=== PATIENT | male | born 1950 | race Caucasian/White ===

== ENCOUNTER 2022-11-15 11:17 | Inpatient (IN) | payer OTHER ==
[~2022-11-15] VITALS: Ht 172.7 cm; Wt 113.4 kg
[2022-11-15 11:21] VITALS: BP 138/7
[2022-11-15 12:10] LABS: BASOPHILS % (AUTO) 0.1 % (0.0-2.0); EOSINOPHILS # (AUTO) 0.1 K/uL (0-0.4); EOSINOPHILS % (AUTO) 0.9 % (0.0-4.0); HEMATOCRIT 37.5 % (36-52); HEMOGLOBIN 12.1 g/dL (12.0-18.0); LYMPHOCYTES # (AUTO) 0.5 K/uL (2.0-11.5); LYMPHOCYTES % (AUTO) 6.5 % (20.5-51.1); MEAN CORPUSCULAR HEMOGLOBIN 28 pg (27-31); MEAN CORPUSCULAR HGB CONC 32 g/dL (33-37); MEAN CORPUSCULAR VOLUME 86.5 fL (80-94); MONOCYTES # (AUTO) 0.6 K/uL (0.8-1.0); MONOCYTES % (AUTO) 7.4 % (1.7-9.3); NEUTROPHILS # (AUTO) 6.7 K/uL (1.8-7.7); NEUTROPHILS % (AUTO) 85.1 % (42.2-75.2); PLATELET COUNT (AUTO) 214 K/uL (140-450); RED BLOOD CELL COUNT(AUTO) 4.33 MIL/uL (4.20-6.10); RED CELL DISTRIBUTION WIDTH 16.7 % (11.6-13.7); WHITE BLOOD COUNT (AUTO) 7.8 K/uL (4.8-10.8)
[2022-11-15 12:28] LABS: ALBUMIN 3.6 g/dL (3.4-5.0); ANION GAP 20.8 (8-16); CARBON DIOXIDE 13.1 mmol/L (21-32); POTASSIUM 5.9 mmol/L (3.5-5.1); TOTAL BILIRUBIN 0.4 mg/dL (0.0-1.0)
[2022-11-15 12:32] LABS: CREATININE 4.6 mg/dL (0.6-1.3)
[2022-11-15] MEDS ORDERED: NACL 0.9% 1,000 ML IV ONE (12:50)
[2022-11-15] MEDS ORDERED: SODIUM POLYSTYRENE 15 GM/60 ML UDBTL PO ONE (12:50)
--- NOTE | 2022-11-15 13:00 | NUR ---
pt a/o times 4, no ac distress, nsr on cm, o2 sat 98% ra, sr up times 2.
[2022-11-15] MEDS ORDERED: ONDANSETRON 4 MG/2 ML VIAL IM/IVP PRN (13:10)
[2022-11-15] MEDS ORDERED: ACETAMINOPHEN 325 MG TAB PO PRN (13:10)
[2022-11-15] MEDS ORDERED: POTASSIUM CHLORIDE 10 MEQ TABER PO PRN (13:10)
[2022-11-15] MEDS ORDERED: HYDROcodone/APAP 7.5/325 MG 1 TAB PO PRN (13:10)
[2022-11-15] MEDS ORDERED: DOCUSATE SODIUM 100 MG GELCAP PO PRN (13:10)
[2022-11-15] MEDS ORDERED: guaiFENesin DM 200/20 MG-10 ML 10 ML UDC PO PRN (13:10)
[2022-11-15] MEDS ORDERED: ZOLPIDEM 5 MG TAB PO PRN (13:10)
[2022-11-15] MEDS ORDERED: PROP20TA29 PO (13:32)
[2022-11-15] MEDS ORDERED: QUET25TA PO (13:32)
[2022-11-15] MEDS ORDERED: AMAN-72 PO (13:32)
[2022-11-15] MEDS ORDERED: ATI.5 PO (13:32)
[2022-11-15] MEDS ORDERED: ERGO-30 PO (13:32)
[2022-11-15] MEDS ORDERED: ESCI10TA PO (13:32)
[2022-11-15] MEDS ORDERED: FESO8TER PO (13:32)
[2022-11-15] MEDS ORDERED: RASA1TAB PO (13:32)
[2022-11-15] MEDS ORDERED: PRAM0.5T4 PO (13:32)
[2022-11-15] MEDS ORDERED: GLIM2TAB PO (13:32)
[2022-11-15] MEDS ORDERED: LAM25 PO (13:32)
[2022-11-15] MEDS ORDERED: LOSA25TA43 PO (13:32)
[2022-11-15] MEDS ORDERED: ALLO100T21 PO (13:32)
[2022-11-15] MEDS ORDERED: GABA100C PO (13:32)
[2022-11-15] MEDS ORDERED: SYN.05 PO (13:32)
[2022-11-15] MEDS ORDERED: MAGN200T12 PO (13:32)
[2022-11-15] MEDS ORDERED: TAMS0.4C96 PO (13:32)
[2022-11-15] MEDS ORDERED: SPIR50TA PO ×2 (13:32)
[2022-11-15] MEDS ORDERED: METF-1243 PO (13:32)
[2022-11-15] MEDS ORDERED: FURO-570 PO (13:32)
[2022-11-15] MEDS ORDERED: MEMA5TAB PO (13:32)
--- NOTE | 2022-11-15 14:00 | NUR ---
food tray given, ate 100% of food, no abd pain, nsr on cm, o2 sat 98% ra, sr up times 2.
--- NOTE | 2022-11-15 15:00 | NUR ---
bs prior transfer wnl, diaper removed, pt cleaned had small bm, nsr on cm, o2 sat 98% ra, pt transferred to 1234B, report to Yasmeen RN
[2022-11-15] MEDS ORDERED: DEXTROSE 50% 50 ML SYR IVP PRN (16:30)
[2022-11-15 16:41] VITALS: BP 111/60
[2022-11-15] MEDS ORDERED: GABAPENTIN 100 MG CAP PO SCH (17:00)
[2022-11-15] MEDS ORDERED: AMANTADINE 100 MG CAP PO SCH (17:00)
[2022-11-15] MEDS: BLOOD GLUCOSE MONITORING 1 DEV DEV FS SCH ×2 (17:39→20:42)
[2022-11-15] MEDS: NACL 0.9% 1,000 ML IV SCH (17:39)
[2022-11-15] MEDS: LORazepam 0.5 MG TAB PO SCH (17:40)
--- NOTE | 2022-11-15 19:05 | NUR ---
RECEIVED PT FROM MORNING SHIFT NURSE. PT IS AOX2-3, WITH RELATIVES BEDSIDE BEDBOUND AND ABLE TO VERBALIZE NEEDS. PT IS ON ROOM AIR AND ON CARDIAC DIET. PT HAS IV ON RIGHT HAND GAUGE 22, RUNNING WITH NS AT 60ML/HR. PT HAS LEFT LOWER LEG BLISTER. PT DENIES PAIN AT THIS TIME. NO S/S OF RESPIRATORY DISTRESS NOTED. ALL SAFETY MEASURES IMPLEMENTED. BED IN LOW POSITION, BED WHEELS ON LOCK AND CALL LIGHT WITHIN REACH.
[2022-11-15 20:00] VITALS: BP 114/68
[2022-11-15] MEDS ORDERED: SODIUM POLYSTYRENE 15 GM/60 ML UDBTL PO SCH (20:00)
[2022-11-15] MEDS: TAMSULOSIN 0.4 MG CAP PO SCH (20:33)
[2022-11-15] MEDS: PRAMIPEXOLE 0.5 MG TAB PO SCH (20:33)
[2022-11-15] MEDS: QUEtiapine FUMARATE 25 MG TAB PO SCH (20:33)
[2022-11-15] MEDS: PROPRANOLOL 20 MG TAB PO SCH (20:33)
--- NOTE | 2022-11-15 20:34 | NUR ---
ALL SCHEDULED MEDICATION WAS GIVEN TO PT PER MD ORDER. ALL SAFETY MEASURES IMPLEMENTED. BED IN LOW POSITION, BED WHEELS ON LOCK AND CALL LIGHT WITHIN REACH.
--- NOTE | 2022-11-15 20:42 | NUR ---
PT BLOOD GLUCOSE IS 109. NO INSULIN COVERAGE NEEDED.
--- NOTE | 2022-11-15 22:00 | NUR ---
PT WAS GIVEN BLANKET. PT DENIES PAIN AT THIS TIME. NO S/S OF RESPIRATORY DISTRESS NOTED. ALL SAFETY MEASURES IMPLEMENTED. BED IN LOW POSITION, BED WHEELS ON LOCK AND CALL LIGHT WITHIN REACH.
[2022-11-16] VITALS: BP 111/58
--- NOTE | 2022-11-16 | NUR ---
REMINDED THE PT THAT HE SHOULD SLEEP. PT VERBALIZE UNDERSTANDING. ALL SAFETY MEASURES IMPLEMENTED. BED IN LOW POSITION, BED WHEELS ON LOCK AND CALL LIGHT WITHIN REACH.
--- NOTE | 2022-11-16 02:00 | NUR ---
PT IS ON SLEEP. CHEST RISE AND FALL SYMMETRICALLY NOTED. RESPIRATION IS EVEN AND UNLABORED. ALL SAFETY MEASURES IMPLEMENTED. BED IN LOW POSITION, BED WHEELS ON LOCK AND CALL LIGHT WITHIN REACH.
[2022-11-16 04:02] VITALS: BP 106/67
--- NOTE | 2022-11-16 04:02 | NUR ---
MORNING CARE WAS DONE TO PT. CHANGED WARD'S, LINENS, BLANKET AND GOWN. INSERTED CONDOM CATHETER TO PT. ALL SAFETY MEASURES IMPLEMENTED. BED IN LOW POSITION, BED WHEELS ON LOCK AND CALL LIGHT WITHIN REACH.
[2022-11-16 05:34] LABS: BASOPHILS % (AUTO) 0.1 % (0.0-2.0); EOSINOPHILS % (AUTO) 0.2 % (0.0-4.0); HEMATOCRIT 30.5 % (36-52); LYMPHOCYTES # (AUTO) 0.4 K/uL (2.0-11.5); MEAN CORPUSCULAR HEMOGLOBIN 28 pg (27-31); MEAN CORPUSCULAR HGB CONC 33 g/dL (33-37); MONOCYTES # (AUTO) 0.4 K/uL (0.8-1.0); MONOCYTES % (AUTO) 8.7 % (1.7-9.3); NEUTROPHILS # (AUTO) 3.8 K/uL (1.8-7.7); PLATELET COUNT (AUTO) 206 K/uL (140-450); RED BLOOD CELL COUNT(AUTO) 3.59 MIL/uL (4.20-6.10); RED CELL DISTRIBUTION WIDTH 16.3 % (11.6-13.7); WHITE BLOOD COUNT (AUTO) 4.6 K/uL (4.8-10.8)
[2022-11-16] MEDS: LEVOTHYROXINE 0.05 MG TAB PO SCH (05:45)
[2022-11-16 05:51] LABS: ANION GAP 21.5 (8-16); CARBON DIOXIDE 11.1 mmol/L (21-32); CREATININE 3.6 mg/dL (0.6-1.3); POTASSIUM 5.6 mmol/L (3.5-5.1)
[2022-11-16] MEDS: NACL 0.9% 1,000 ML IV SCH (05:51)
--- NOTE | 2022-11-16 05:53 | NUR ---
RECEIVED CALL FROM LAB ([facility]) REGARDING CRITICAL VALUE OF CREATININE-95
[2022-11-16 06:13] LABS: LYMPHOCYTES % (AUTO) 8.6 % (20.5-51.1); NEUTROPHILS % (AUTO) 82.4 % (42.2-75.2)
--- NOTE | 2022-11-16 06:40 | NUR ---
IV IS INFILTRATED. INSERTED NEW IV ON RIGHT FOREARM GAUGE 20. IV IS NOW PATENT AND INTACT. ALL SAFETY MEASURES IMPLEMENTED. BED IN LOW POSITION, BED WHEELS ON LOCK AND CALL LIGHT WITHIN REACH.
[2022-11-16] MEDS: BLOOD GLUCOSE MONITORING 1 DEV DEV FS SCH ×4 (06:43→20:19)
--- NOTE | 2022-11-16 06:43 | NUR ---
PT BLOOD GLUCOSE IS 138. NO INSULIN COVERAGE NEEDED.
--- NOTE | 2022-11-16 07:27 | NUR ---
PT IS STABLE. ENDORSED PT TO MORNING SHIFT NURSE FOR CONTINUITY OF CARE.
--- NOTE | 2022-11-16 07:28 | NUR ---
RECEIVED ENDORSEMENT FROM SEWER SYSTEM SUPERVISOR NURSE FOR CONTINUITY OF CARE. PT IS ASLEEP AND NO SIGN OF DISTRESS. CALL JACOBSEN WITHIN REACH. WILL CONTINUE TO MONITOR.
[2022-11-16 08:00] VITALS: BP 111/52
[2022-11-16] MEDS ORDERED: LOSARTAN 25 MG TAB PO SCH (09:00)
[2022-11-16] MEDS: QUEtiapine FUMARATE 25 MG TAB PO SCH ×2 (09:17→20:23)
[2022-11-16] MEDS: PRAMIPEXOLE 0.5 MG TAB PO SCH ×2 (09:17→20:20)
[2022-11-16] MEDS: PROPRANOLOL 20 MG TAB PO SCH ×2 (09:18→20:22)
[2022-11-16] MEDS: lamoTRIgine 25 MG TAB PO SCH (09:18)
[2022-11-16] MEDS: GABAPENTIN 300 MG CAP PO SCH (09:19)
[2022-11-16] MEDS: MEMANTINE 10 MG TAB PO SCH (09:19)
[2022-11-16] MEDS: PANTOPRAZOLE 40 MG TABEC PO SCH (09:19)
[2022-11-16] MEDS: allopurinoL 100 MG TAB PO SCH (09:20)
[2022-11-16] MEDS: LORazepam 0.5 MG TAB PO SCH ×3 (09:20→17:20)
[2022-11-16] MEDS: ESCITALOPRAM 20 MG TAB PO SCH (09:21)
[2022-11-16] MEDS ORDERED: RENAL DOSING PER PHARMACY MC PRN (11:25)
[2022-11-16 12:00] VITALS: BP 130/69
[2022-11-16] MEDS: AMANTADINE 100 MG CAP PO SCH (12:04)
--- NOTE | 2022-11-16 13:27 | NUR ---
DRESSING CHANGED ON THE LEFT LOWER LEG, THE SKIN RED LOOKS, THE WHOLE LEG LAS NON PETTING EDEMA IN BILATERAL LEGS.[id number]
[2022-11-16] MEDS ORDERED: SODIUM POLYSTYRENE 15 GM/60 ML UDBTL PO ONE (15:15)
[2022-11-16 16:00] VITALS: BP 119/59
[2022-11-16] MEDS: SODIUM BICARBONATE 8.4% 100 MEQ in NACL 0.45% 1,000 ML IV SCH (16:02)
[2022-11-16] MEDS: INSULIN LISPRO SLIDING SCALE 100 UNITS/ML VIAL SUBQ PRN ×2 (17:06→20:58)
--- NOTE | 2022-11-16 17:54 | NUR ---
URINE SAMPLE IS SENT TO THE LAB.[id number]
[2022-11-16 18:53] LABS: BILIRUBIN,URINE NEGATIVE (NEGATIVE); BLOOD, URINE 2+ (NEGATIVE); LEUKOCYTE ESTERASE ,URINE NEGATIVE (NEGATIVE); NITRITE, URINE NEGATIVE (NEGATIVE); UGLUCOSE NEGATIVE (NEGATIVE)
[2022-11-16 19:10] LABS: APPEARANCE,URINE CLEAR (CLEAR); COLOR,URINE YELLOW (YELLOW)
[2022-11-16 19:12] LABS: RBC,URINE 0-5 /HPF (0-5)
--- NOTE | 2022-11-16 19:40 | NUR ---
RECEIVED PT SLEEPING ON BED , DINNER TRAY REMAINS UNTOUCHED AT BEDSIDE . WILL FEED THE PT . ON TELE MONITOR . NO S/SX OF ACUTE DISTRESS NOTED AT THIS TIME . BED ALARM ON .
[2022-11-16 20:00] VITALS: BP 133/79
[2022-11-16] MEDS: TAMSULOSIN 0.4 MG CAP PO SCH (20:20)
--- NOTE | 2022-11-16 20:20 | NUR ---
WHILE GIVING MEDICATION AND TAKING HIS VITAL SIGNS , PT REQUESTING TO CALL HER DAUGHTER JOANIE . PER PT HE WANTS TO TALK HER DAUGHTER BUT HE NOT ELABORATES ABOUT HIS CONCERN .
--- NOTE | 2022-11-16 20:40 | NUR ---
DIALED THE NUMBER OF PT'S DAUGHTER , WHEN THE PT'S TALKING HIS DAUGHTER THRU BEDSIDE TEL . PER HER DAUGHTER IT BEEN A LONG TIME HER FATHER IS ALREADY HERE IN THE HOSPITAL BUT NO ONE CALL HER TO GIVE AN UPDATE ABOUT HER DAD . I INFORMING THE DAUGHTER THE DOCTOR WILL DO ROUNDS JONAH MORNING AND I WILL ENDORSE TO AM NURSE TO INFORM THE DOCTOR TO GIVE A CALL TO HER SO THAT THE DOCTOR WILL DISCUSS W/ HER ABOUT PT'S TREATMENT AND PLAN OF CARE . PT. JUST WOKE UP . WILL FEED THE PT . AND WILL CLEAN UP THE PT . CALL LIGHT WITHIN REACH . BED ALARM ON .
--- NOTE | 2022-11-16 22:20 | NUR ---
FEEDING THE PT . NO S/SX OF ASPIRATION NOTED . Addendum: 11/16/22 at 9306 by Priscila Mabry RN THE ABOVE IRINEO'S NOTE IS TIME ERROR ENTRY INSTEAD OF 0 - NOEL
--- NOTE | 2022-11-16 22:40 | NUR ---
CLEAN THE PT , MY CO WORKER ALLYSSA GALLO HELPS ME CLEAN THE PT . PT HAS WATERY BM IN MODERATE AMOUNT , BP WNL . WILL CONT. TO MONITOR . CALL LIGHT WITHIN REACH Addendum: 11/16/22 at 2336 by Priscila Mabry RN THE ABOVE NURSE'S NOTE IS AN ERROR ENTRY , INSTEAD OF Robin - NOEL
--- NOTE | 2022-11-16 23:00 | NUR ---
PT HAS WET DIAPER - WILL CLEAN UP , CALL LIGHT WITHIN REACH . Addendum: 11/16/22 at 4964 by Priscila Mabry RN THE ABOVE NURSE'S NOTE IS TIME ERROR ENTRY , INSTEAD OF 2200 - NOEL
[2022-11-17] VITALS: BP 130/72
[2022-11-17 04:00] VITALS: BP 140/82
--- NOTE | 2022-11-17 04:00 | NUR ---
rounds , pt has wet diaper only pee no bm - will clean up . no s/sx of acute distress noted .
--- NOTE | 2022-11-17 04:12 | NUR ---
c/o pain , w/ on and off hand tremors - bp 140/ 78 , hr 77 , rr 18 , o2 sat 99 5 - will medicate .
[2022-11-17] MEDS: SODIUM BICARBONATE 8.4% 100 MEQ in NACL 0.45% 1,000 ML IV SCH ×3 (04:22→18:03)
--- NOTE | 2022-11-17 05:15 | NUR ---
when i return to pt's room to give norco . pt is sleeping soundly and comfortably on bed , i call his name 2x to wake him up , but pt sleeping soundly , no signs of pain in his facial appearance , no hand tremors noted at this time on tele monitor , hr 74 , rr 18 , chest rise and fall equally , will cont. to nate , will reteurn the norco to kayy , will re assess the pain , call light within reach .
[2022-11-17 05:27] LABS: BASOPHILS % (AUTO) 0.4 % (0.0-2.0); EOSINOPHILS # (AUTO) 0.1 K/uL (0-0.4); EOSINOPHILS % (AUTO) 2.1 % (0.0-4.0); HEMATOCRIT 32.9 % (36-52); HEMOGLOBIN 10.7 g/dL (12.0-18.0); LYMPHOCYTES # (AUTO) 0.9 K/uL (2.0-11.5); LYMPHOCYTES % (AUTO) 15.8 % (20.5-51.1); MEAN CORPUSCULAR HEMOGLOBIN 27 pg (27-31); MEAN CORPUSCULAR HGB CONC 33 g/dL (33-37); MEAN CORPUSCULAR VOLUME 83.7 fL (80-94); MONOCYTES # (AUTO) 0.7 K/uL (0.8-1.0); MONOCYTES % (AUTO) 13.4 % (1.7-9.3); NEUTROPHILS # (AUTO) 3.8 K/uL (1.8-7.7); NEUTROPHILS % (AUTO) 68.3 % (42.2-75.2); PLATELET COUNT (AUTO) 237 K/uL (140-450); RED BLOOD CELL COUNT(AUTO) 3.93 MIL/uL (4.20-6.10); RED CELL DISTRIBUTION WIDTH 16.6 % (11.6-13.7); WHITE BLOOD COUNT (AUTO) 5.6 K/uL (4.8-10.8)
[2022-11-17 05:42] LABS: ANION GAP 16.6 (8-16); CREATININE 2.5 mg/dL (0.6-1.3); POTASSIUM 3.6 mmol/L (3.5-5.1)
--- NOTE | 2022-11-17 05:43 | NUR ---
re visiting the pt . pt is sleeping , call light within reach . will cont. to monitor
--- NOTE | 2022-11-17 05:52 | NUR ---
per lab bun 6.8 . The result is trending down . charge nurse inform .
[2022-11-17] MEDS: BLOOD GLUCOSE MONITORING 1 DEV DEV FS SCH ×4 (06:50→21:10)
[2022-11-17] MEDS: INSULIN LISPRO SLIDING SCALE 100 UNITS/ML VIAL SUBQ PRN ×4 (06:50→21:23)
[2022-11-17] MEDS: LEVOTHYROXINE 0.05 MG TAB PO SCH (06:57)
--- NOTE | 2022-11-17 07:30 | NUR ---
RECEIVED REPORT FROM NUCLEAR POWERPLANT MECHANIC HELPER NURSE FOR CONTINUITY OF CARE. PT IS AWAKE AND STABLE. NO SIGNS OF DISTRESS. WILL REVIEW POC AND CONTINUE TO MONITOR. Addendum: 11/17/22 at 0803 by ESTEVAN JONES RN AT 0735 RECEIVED REPORT FROM NUCLEAR POWERPLANT MECHANIC HELPER NURSE FOR CONTINUITY OF CARE. PT IS AWAKE AND STABLE. NO SIGNS OF DISTRESS. WILL REVIEW POC AND CONTINUE TO MONITOR.
--- NOTE | 2022-11-17 07:35 | NUR ---
endorsed to kassie dave requested oat meat for breakfast , black coffee and splenda sugar - wyatt dave verbalizes underatanding , i left msg / request to dietary via phone machine . pt is 1: 1 feeder due to0 hand tremors , endorsed . Addendum: 11/17/22 at 0747 by Priscila Mabry RN endorsed to wyatt dave - pt.'s daughter ( erin Tompkins wants to talk the doctor about plan of care - the contact number is in the file - wyatt dave verbalizes understanding .
[2022-11-17 08:00] VITALS: BP 150/60
--- NOTE | 2022-11-17 08:44 | NUR ---
PATIENT HAS BEEN SCREENED AND CATEGORIZED HIGH NUTRITION RISK. PATIENT WILL BE SEEN WITHIN 1-2 DAYS OF ADMISSION. FNS CONSULT RECEIVED FOR WOUNDS/PRESSURE ULCERS 11/17/22 11/15/22-11/17/[address]
[2022-11-17] MEDS: MEMANTINE 10 MG TAB PO SCH (08:53)
[2022-11-17] MEDS: ESCITALOPRAM 20 MG TAB PO SCH (08:53)
[2022-11-17] MEDS: allopurinoL 100 MG TAB PO SCH (08:54)
[2022-11-17] MEDS: lamoTRIgine 25 MG TAB PO SCH (09:03)
[2022-11-17] MEDS: LORazepam 0.5 MG TAB PO SCH ×3 (09:04→16:50)
[2022-11-17] MEDS: QUEtiapine FUMARATE 25 MG TAB PO SCH ×2 (09:04→21:12)
[2022-11-17] MEDS: GABAPENTIN 300 MG CAP PO SCH (09:06)
[2022-11-17] MEDS: PROPRANOLOL 20 MG TAB PO SCH ×2 (09:07→21:13)
[2022-11-17] MEDS: PANTOPRAZOLE 40 MG TABEC PO SCH (09:08)
[2022-11-17] MEDS: PRAMIPEXOLE 0.5 MG TAB PO SCH ×2 (09:08→21:13)
[2022-11-17] MEDS: AMANTADINE 100 MG CAP PO SCH (09:09)
--- NOTE | 2022-11-17 11:17 | NUR ---
SKIN ASSESSMENT DONE ON THIS 72-YEAR-OLD MALE FROM SNF WITH AMS. PAST MEDICAL HISTORY OF DIABETES, HYPERTENSION, BPH, HYPOTHYROIDISM, PARKINSONISM, DEMENTIA, GOUT AND PT. ADMITTED WITH MASD AND LLE WOUND. POC DISCUSSED WITH PT., PT. VERBALIZES UNDERSTANDING. PT. WITH LOW SOFY SCALE AT MODERATE TO HIGH RISK, CONTINUE TO FOLLOW PRESSURE INJURY PREVENTION INTERVENTIONS. POC DISCUSSED WITH PRIMARY RN PATRICIA. -MASD TO GROINS, SCROTAL AND BUTTOCKS AREA, SKIN RED, MOIST -STASIS ULCER TO LLE MULTIPLE PARTIAL THICKNESS SKIN LOSS WITH LARGEST TO LATERAL LE 12X5X0.1CM, WOUND BED 100% PINK, MOIST, NO ODOR,ALIX WOUND SKIN PALE, MOIST, PAIN 0/10. RECOMMENDATIONS -CLEANSE MASD TO GROINS, SCROTAL AND BUTTOCKS AREA WITH MILD SOAP AND WATER, PAT DRY, APPLY Z GUARD BID AND PRN IF SOILING. -CLEANSE LLE WOUND WITH CLEANSING SOLUTION, PAT DRY, APPLY OIL EMULSION DRESSING, COVER WITH ABD PAD, WRAP WITH KERLIX ROLL AND SECURED WITH TAPE. DAILY AND PRN IF SOILING -POSITIONING: TURN AND REPOSITION PATIENT Q 2H OR SOONER USE PILLOWS TO KEEP BONY PROMINENCES FROM DIRECT CONTACT WITH SURFACES USE REPOSITIONING WEDGES TO PROVIDE 30-DEGREE ANGLE FOR SIDE LYING POSITIONS OFFLOADING OR FOAM DRESSING TO ALL TUBING TO PREVENT MEDICAL DEVICES RELATED PRESSURE INJURY -RE-EVALUATING AND MANAGING INCONTINENCE MONITOR SKIN CONDITION DURING POSITION CHANGE DO NOT MASSAGE REDNESS, BONY PROMINENCES FREQUENT ALIX-CARE AND PROVIDE BARRIER CREAMS PRN IF SOILING MOISTURE CONTROL BY OFFER BED GANNON/URINAL /ABSORBENT PAD TO WICK AND HOLD MOISTURE KEEP SKIN DRY AND PROTECT FROM FRICTION -MANAGE FRICTION/SHEAR/MOBILITY KEEP HOB AT THE LOWEST LEVEL OF ELEVATION NO MORE THAN 30 DEGREE UNLESS OTHERWISE CONTRAINDICATED USE LIFT SHEET OR TRANSFER DEVICE TO MOVE PATIENT AND PREVENT LATERAL SHEER. PROTECT HEELS, ELBOWS BONY PROMINENCES WITH SKIN BERRIES OR FOAM DRESSING IF EXPOSED TO FRICTION OFFLOAD BILATERAL HEELS BY PLACING PILLOWS UNDER CALVES AT ALL TIMES, UNLESS OTHERWISE CONTRAINDICATED -PRESSURE REDISTRIBUTION SURFACE THERAPY SAAD ISOFLEX MATTRESS -NUTRITION: PLEASE FOLLOW RD RECOMMENDATIONS AND OFFER NUTRITION SUPPLEMENTS IF ORDERED. PLEASE CONTACT WOUND CARE NURSE FOR ANY QUESTION AND CHANGE OF WOUND CONDITION.
--- NOTE | 2022-11-17 11:22 | NUR ---
spoke with Leticia the director at [facility] and she said that they do not give out the original of the POLST.[email or web address]
[2022-11-17] MEDS ORDERED: Z-GUARD PASTE TP PRN (11:40)
[2022-11-17 11:52] LABS: CHLORIDE,URINE RANDOM 67 mmol/L (110-250); CREATININE,URINE RANDOM 51 mg/dL (30-125)
[2022-11-17 12:00] VITALS: BP 126/66
[2022-11-17] MEDS ORDERED: NON ADHERENT DRESSING TP SCH (13:00)
[2022-11-17] MEDS: Z-GUARD PASTE TP SCH (13:00)
--- NOTE | 2022-11-17 14:22 | NUR ---
11/17/22 RD INITIAL ASSESSMENT COMPLETED PLEASE REFER TO NUTRITION ASSESSMENT UNDER CARE ACTIVITY FOR ESTIMATED NUTRITIONAL NEEDS. 1. CONTINUE ON CURRENT CCHO AND CARDIAC DIET TOLERATED 2. RD RECOMMENDS PROSOURCE BID WHICH WILL PROVIDE 30GMS OF EXTRA PROTEIN MEETING ESTIMATED NUTRITION NEEDS FOR WOUNDS. 3. RD TO FOLLOW-UP 3-5 DAYS, MODERATE RISK REENA BRADY RD
--- NOTE | 2022-11-17 15:37 | NUR ---
DC [age]ANN[age] YRS OLD MALE PATIENT WAS ADMITTED FROM [facility] WITH A DX OF ALOC. PATIENT HAS A HX OF HTN, BPH , PARKINSON DEMENTIA AND GOUT. CXR AND RENAL US NEGATIVE. RAPID COVID TEST NEGATIVE. ADMINISTERED IVF, AND CONTINUED HOME MEDS. CONSULTED WITH NEPHRO AND WOUND CARE NURSE. DC PLAN TO RETURN TO [facility] WHEN STABLE CM TO FOLLOW Addendum: 11/18/22 at 0904 by FREDDY MUELLER CM RECIEVED ORDER TO [facility] HOME HEALTH PT/OT. FAXED ALL PAPERWORK TO [facility]. Addendum: 11/18/22 at 1322 by FREDDY MUELLER TRANSPORTATION SETUP WITH [facility] FOR A [id number] [employer] MESSAGE BROKER DEVELOPER TIME NURSE VESTA AND DAUGHTER JOANIE AWARE OF THE ABOVE INFORMATION.
--- NOTE | 2022-11-17 15:58 | NUR ---
WOUND NURSE CHANGED THE DRESSING OF THE PT'S LEFT LEG. FLAQUITO
[2022-11-17 16:00] VITALS: BP 156/68
--- NOTE | 2022-11-17 19:29 | NUR ---
ENDORSED PT TO THE RISK REDUCTION COUNSELOR NURSE FOR CONTINUITY OF CARE.
--- NOTE | 2022-11-17 19:30 | NUR ---
RECEIVED REPORT FROM DAY SHIFT NURSE FOR CONTINUITY OF CARE. PT IS AWAKE AT THIS TIME, STATES NO PAIN PRESENT. CURRENTLY ON ROOM AIR WITH NO SIGNS OF DISTRESS NOTED. IV SITE LOCATED AT RIGHT FOREARM 20 GAUGE, INTACT AND PATENT. WILL MONITOR FREQUENTLY THROUGHOUT SHIFT.
[2022-11-17 20:00] VITALS: BP 144/41
--- NOTE | 2022-11-17 20:00 | NUR ---
Patient's Plan of Care was discussed and reviewed with OVEN DRIER TENDER: WILBERT PERALES
--- NOTE | 2022-11-17 21:03 | NUR ---
SCHEDULED MEDICATIONS ADMINISTERED. PT TOLERATED WELL. WILL CONTINUE TO MONITOR THE PT.
[2022-11-17] MEDS: TAMSULOSIN 0.4 MG CAP PO SCH (21:38)
[2022-11-18] VITALS: BP 103/61
--- NOTE | 2022-11-18 | NUR ---
PT STILL AWAKE AT THIS TIME. PATIENT REQUESTED ORAL CARE. TOOK VITAL SIGNS, PT HEART RATE RUNNING SINUS CELINE, OTHERWISE VITAL SIGNS WNL. PERFORMED ORAL CARE AND ENCOURAGED PT TO TRY AND SLEEP. WILL CONTINUE FREQUENT MONITORING.
[2022-11-18] MEDS: Z-GUARD PASTE TP SCH (01:10)
--- NOTE | 2022-11-18 01:10 | NUR ---
CLEANED, APPLIED Z-GAURD PRESCRIBED TO PT. PT TOLERATED WELL. PT NOW ASLEEP, WILL CONTINUE MONITORING.
[2022-11-18 04:00] VITALS: BP 155/63
[2022-11-18 05:12] LABS: BASOPHILS # (AUTO) 0.1 K/uL (0.00-0.22); BASOPHILS % (AUTO) 0.6 % (0.0-2.0); EOSINOPHILS # (AUTO) 0.6 K/uL (0-0.4); EOSINOPHILS % (AUTO) 5.8 % (0.0-4.0); HEMATOCRIT 30.6 % (36-52); HEMOGLOBIN 10.3 g/dL (12.0-18.0); LYMPHOCYTES # (AUTO) 2.2 K/uL (2.0-11.5); LYMPHOCYTES % (AUTO) 22.8 % (20.5-51.1); MEAN CORPUSCULAR HEMOGLOBIN 28 pg (27-31); MEAN CORPUSCULAR HGB CONC 34 g/dL (33-37); MEAN CORPUSCULAR VOLUME 83.3 fL (80-94); MONOCYTES # (AUTO) 1.3 K/uL (0.8-1.0); MONOCYTES % (AUTO) 12.7 % (1.7-9.3); NEUTROPHILS # (AUTO) 5.7 K/uL (1.8-7.7); NEUTROPHILS % (AUTO) 58.1 % (42.2-75.2); PLATELET COUNT (AUTO) 220 K/uL (140-450); RED BLOOD CELL COUNT(AUTO) 3.67 MIL/uL (4.20-6.10); RED CELL DISTRIBUTION WIDTH 16.9 % (11.6-13.7); WHITE BLOOD COUNT (AUTO) 9.9 K/uL (4.8-10.8)
[2022-11-18 05:39] LABS: CARBON DIOXIDE 23.1 mmol/L (21-32); CREATININE 1.9 mg/dL (0.6-1.3); POTASSIUM 3.1 mmol/L (3.5-5.1)
[2022-11-18] MEDS: BLOOD GLUCOSE MONITORING 1 DEV DEV FS SCH ×2 (06:30→11:22)
[2022-11-18] MEDS: LEVOTHYROXINE 0.05 MG TAB PO SCH (06:30)
--- NOTE | 2022-11-18 07:20 | NUR ---
ASSUMED CONTINUITY OF CARE. INITIAL ASSESSMENT DONE. RE-ORIENTED TO EVENTS AND SURROUNDINGS. KEEP COMFORTABLE ON BED. FALL PRECAUTION APPLIED. CALL LIGHT WITHIN REACH.
--- NOTE | 2022-11-18 07:27 | NUR ---
PT SLEPT WELL THROUGHOUT SHIFT. PT VOIDED TWICE AND HAD NO BM DURING CUT OFF SAW GRADER. LAST BLOOD SUGAR = 145, NO COVERAGE NEEDED. ENDORSED TO DAY SHIFT NURSE FOR CONTINUITY OF CARE.
[2022-11-18 08:00] VITALS: BP_SYST 108; BP_SYST 116; BP_DIAS 62; BP_DIAS 63
--- NOTE | 2022-11-18 08:29 | NUR ---
PAGED DR. PITTMAN REGARDING PT. CODE STATUS AND SENT A COPY OF PT. DNR STATUS. DR. PITTMAN PAGED BACK AND SAID THAT HE WILL CHECK WITH THE PT.. INFORMED CHARGE NURSE LORENA GRAYSON.
[2022-11-18] MEDS: PROPRANOLOL 20 MG TAB PO SCH (09:00)
[2022-11-18] MEDS: GABAPENTIN 300 MG CAP PO SCH (09:11)
[2022-11-18] MEDS: ESCITALOPRAM 20 MG TAB PO SCH (09:12)
[2022-11-18] MEDS: AMANTADINE 100 MG CAP PO SCH (09:12)
[2022-11-18] MEDS: LORazepam 0.5 MG TAB PO SCH (09:12)
[2022-11-18] MEDS: allopurinoL 100 MG TAB PO SCH (09:12)
[2022-11-18] MEDS: QUEtiapine FUMARATE 25 MG TAB PO SCH (09:12)
[2022-11-18] MEDS: PRAMIPEXOLE 0.5 MG TAB PO SCH (09:13)
[2022-11-18] MEDS: lamoTRIgine 25 MG TAB PO SCH (09:13)
[2022-11-18] MEDS: PANTOPRAZOLE 40 MG TABEC PO SCH (09:13)
[2022-11-18] MEDS: MEMANTINE 10 MG TAB PO SCH (09:13)
[2022-11-18] MEDS: SODIUM BICARBONATE 8.4% 100 MEQ in NACL 0.45% 1,000 ML IV SCH (10:28)
--- NOTE | 2022-11-18 10:39 | NUR ---
INFORMED DR. PITTMAN OF PT. K 3.1 AND DNR CODE STATUS. INFORMED CHARGE NURSE PELON GRAYSON.
[2022-11-18] MEDS ORDERED: POTASSIUM CHLORIDE 20% 40 MEQ/15 ML UDC PO SCH (11:01)
--- NOTE | 2022-11-18 11:05 | NUR ---
DR. PITTMAN SPOKE TO PT. AT BEDSIDE.
[2022-11-18] MEDS: INSULIN LISPRO SLIDING SCALE 100 UNITS/ML VIAL SUBQ PRN (11:22)
[2022-11-18 12:00] VITALS: BP 113/65
--- NOTE | 2022-11-18 12:21 | NUR ---
CALLED PT. DAUGHTER -JOANIE PEREYRA AT INFORMED PT. D/C TO [facility].
--- NOTE | 2022-11-18 12:28 | NUR ---
CALLED [facility] AT AND SPOKE TO KAM REGARDING PT. D/C BACK TO FACILITY AND ACCORDING TO KAM NO TRANSPORT AVAILABLE FOR TODAY. INFORMED CHARGE NURSE PELON GRAYSON.
--- NOTE | 2022-11-18 12:30 | NUR ---
CALLED LUIS ANTONIO -METAL RIVETER AND INFORMED HER THAT PER KAM FROM [facility], NO TRANSPORT AVAILABLE TO [facility] IN[facility] SPECIALIST PT.. INFORMED CHARGE NURSE -PELON.
--- NOTE | 2022-11-18 14:15 | NUR ---
D/C TO [facility] WITH MEDICAL TRANSPORTER. IN STABLE CONDITION. INFORMED CHARGE NURSE PELON GRAYSON.
== END 2022-11-18 14:25 | disposition home health service (06) | DRG 637 ==
LOC: MED 11:17 → MTU 13:12
PROVIDERS: ADMIT Student in an Organized Health Care Education/Training Program; ATTEND Student in an Organized Health Care Education/Training Program
DX: E11.649 Type 2 diabetes mellitus with hypoglycemia without coma (principal); G93.41 Metabolic encephalopathy; E87.1 Hypo-osmolality and hyponatremia; N17.0 Acute kidney failure with tubular necrosis; E11.22 Type 2 diabetes mellitus with diabetic chronic kidney disease; E86.0 Dehydration; E87.5 Hyperkalemia; F02.80 Dementia in other diseases classified elsewhere, unspecified severity, without behavioral disturbance, psychotic disturbance, mood disturbance, and anxiety; N18.9 Chronic kidney disease, unspecified; Z20.822 Contact with and (suspected) exposure to COVID-19; I12.9 Hypertensive chronic kidney disease with stage 1 through stage 4 chronic kidney disease, or unspecified chronic kidney disease; N40.0 Benign prostatic hyperplasia without lower urinary tract symptoms; Z79.84 Long term (current) use of oral hypoglycemic drugs; Z79.899 Other long term (current) drug therapy; G20 Parkinson's disease
CPT/HCPCS: 36415; 71045; 76770; 80048; 80053; 81001; 82436; 82570; 82948; 83880; 84300; 84484; 85025; 87081; 93005; 96360; 97116; 97163-GP; 97530; 99285; J1644; J3490; Q0092

== ENCOUNTER 2023-07-19 17:10 | Inpatient (IN) | payer OTHER ==
[~2023-07-19] VITALS: Ht 170.2 cm; Wt 81.6 kg
[~2023-07-19 17:10] MED LIST: ALLO100T21 PO; AMAN-72 PO; ATI.5 PO; ERGO-30 PO; ESCI10TA PO; FESO8TER PO; GABA100C PO; LAM25 PO; MAGN200T12 PO; MEMA5TAB PO; METF-1243 PO; PRAM0.5T4 PO; PROP20TA29 PO; QUET25TA PO; RASA1TAB PO; SYN.05 PO; TAMS0.4C96 PO
[2023-07-19 17:20] VITALS: PULSE 67; RESP 32; O2SAT 94
[2023-07-19 17:25] VITALS: BP 237/174; PULSE 68; RESP 30; O2SAT 85
[2023-07-19 17:30] VITALS: O2SAT 98
[2023-07-19] MEDS ORDERED: cefTRIAXone 1,000 MG in DEXT 5% MINI-BAG PLUS 50 ML IV ONE (17:50)
[2023-07-19] MEDS ORDERED: cefTRIAXone 1,000 MG VIAL ONE (18:16)
[2023-07-19 18:22] LABS: BASOPHILS % (AUTO) 0.1 % (0.0-2.0); EOSINOPHILS % (AUTO) 0.1 % (0.0-4.0); HEMATOCRIT 24.4 % (36-52); HEMOGLOBIN 7.7 g/dL (12.0-18.0); LYMPHOCYTES # (AUTO) 0.4 K/uL (2.0-11.5); LYMPHOCYTES % (AUTO) 3.6 % (20.5-51.1); MEAN CORPUSCULAR HEMOGLOBIN 27 pg (27-31); MEAN CORPUSCULAR HGB CONC 32 g/dL (33-37); MEAN CORPUSCULAR VOLUME 85.5 fL (80-94); MONOCYTES # (AUTO) 1.3 K/uL (0.8-1.0); MONOCYTES % (AUTO) 11.8 % (1.7-9.3); NEUTROPHILS # (AUTO) 9.3 K/uL (1.8-7.7); NEUTROPHILS % (AUTO) 84.4 % (42.2-75.2); PLATELET COUNT (AUTO) 317 K/uL (140-450); RED BLOOD CELL COUNT(AUTO) 2.86 MIL/uL (4.20-6.10); RED CELL DISTRIBUTION WIDTH 17.6 % (11.6-13.7)
[2023-07-19 18:29] LABS: CALCIUM 8.7 mg/dL (8.5-10.1); CARBON DIOXIDE 10.9 mmol/L (21-32); CHLORIDE 106 mmol/L (98-107); GLUCOSE 208 mg/dL (74-106); POTASSIUM 5.9 mmol/L (3.5-5.1); SODIUM SERUM 138 mmol/L (136-145)
[2023-07-19 18:41] LABS: UREA NITROGEN, BLOOD 89 mg/dL (7-18)
[2023-07-19 18:43] VITALS: PULSE 61; RESP 30; O2SAT 95; O2SAT 96
[2023-07-19 18:44] LABS: FLU A ANTIGEN negative (NEGATIVE); FLU B ANTIGEN NEGATIVE (NEGATIVE)
[2023-07-19 18:45] LABS: LACTIC ACID 1.4 mmol/L (0.4-2.0)
[2023-07-19 19:12] LABS: ALANINE AMINOTRANSFERASE 25 U/L (12-78); ALBUMIN 2.2 g/dL (3.4-5.0); ALKALINE PHOSPHATASE 177 U/L (50-136); ASPARTATE AMINOTRANSFERASE 99 U/L (15-37); BILIRUBIN,DIRECT 0.2 mg/dL (0.0-0.3); TOTAL BILIRUBIN 0.4 mg/dL (0.0-1.0)
[2023-07-19] MEDS ORDERED: HYDROcodone/APAP 5/325 MG 1 TAB TAB PO PRN (20:25)
[2023-07-19] MEDS ORDERED: ACETAMINOPHEN 325 MG TAB PO PRN (20:25)
[2023-07-19] MEDS ORDERED: ENALAPRILAT 2.5 MG/2 ML VIAL IVP ONE (20:25)
[2023-07-19] MEDS ORDERED: MORPHINE SULFATE 4 MG/ML SYR IVP PRN (20:25)
[2023-07-19] MEDS ORDERED: POTASSIUM CHLORIDE 10 MEQ TABER PO PRN (20:35)
[2023-07-19] MEDS ORDERED: MAG SULF 2000 MG/WATER PREMIX 50 ML IV PRN (20:35)
[2023-07-19] MEDS ORDERED: ALBUTEROL SULFATE/IPRATROPIU 3 ML SOL IH PRN (20:35)
[2023-07-19] MEDS ORDERED: SODIUM ZIRCONIUM CYCLOSILICATE 10 GM POWD.PACK PO ONE (20:35)
[2023-07-19] MEDS ORDERED: DEXTROSE 50% 50 ML SYR IVP PRN (20:35)
[2023-07-19] MEDS ORDERED: ZOLPIDEM 10 MG TAB PO PRN (20:35)
[2023-07-19] MEDS ORDERED: PRAMIPEXOLE 0.5 MG TAB PO SCH (21:00)
[2023-07-19] MEDS ORDERED: QUEtiapine FUMARATE 25 MG TAB PO SCH (21:00)
[2023-07-19 21:55] VITALS: PULSE 54; O2SAT 97
[2023-07-19 22:00] VITALS: BP 131/80; PULSE 52; PULSE 58; RESP 16; TEMP 96.6; O2SAT 96; O2SAT 97
[2023-07-19] MEDS ORDERED: PIPERACILLIN/TAZOBACTAM 2.25 GM VIAL IV ONE (22:26)
[2023-07-19] MEDS: BLOOD GLUCOSE MONITORING 1 DEV DEV FS SCH (22:36)
[2023-07-19] MEDS: NACL 0.9% 1,000 ML IV SCH (22:37)
[2023-07-19] MEDS: PIPERACILLIN/TAZOBACTAM 2.25 GM in DEXTROSE 5% 50 ML IV SCH (22:55)
[2023-07-19] MEDS: INSULIN LISPRO SLIDING SCALE 100 UNITS/ML VIAL SUBQ PRN (23:01)
[2023-07-19 23:46] LABS: BLOOD GAS BASE EXCESS -17.3 mmol/L (-2.0-2.0); BLOOD GAS HCO3 9.4 mmol/L (22-26); BLOOD GAS O2 SAT% 99.7 % (92.0-98.5); BLOOD GAS PCO2 25.1 mmHg (35-45); BLOOD GAS PO2 272.5 mmHg (75-100)
[2023-07-20] VITALS (10 sets, daily range): BP systolic 79–124; BP diastolic 53–101; PULSE 52–69; RESP 16–27; TEMP 96.7–97.3; O2SAT 94–100
[2023-07-20] MEDS: ALBUTEROL SULFATE/IPRATROPIU 3 ML SOL IH SCH ×2 (00:43→04:42)
[2023-07-20] MEDS ORDERED: HYDRAGUARD CREAM TP SCH (01:00)
[2023-07-20] MEDS ORDERED: methylPREDNISolone SS 40 MG/ML VIAL IVP SCH (05:00)
[2023-07-20] MEDS ORDERED: PIPERACILLIN/TAZOBACTAM 2.25 GM VIAL IV ONE (05:43)
[2023-07-20] MEDS: PIPERACILLIN/TAZOBACTAM 2.25 GM in DEXTROSE 5% 50 ML IV SCH (05:50)
[2023-07-20] MEDS: NACL 0.9% 1,000 ML IV SCH (06:35)
[2023-07-20] MEDS: BLOOD GLUCOSE MONITORING 1 DEV DEV FS SCH (06:39)
[2023-07-20] MEDS: INSULIN LISPRO SLIDING SCALE 100 UNITS/ML VIAL SUBQ PRN (06:43)
[2023-07-20 06:45] LABS: BASOPHILS % (AUTO) 0.1 % (0.0-2.0); EOSINOPHILS % (AUTO) 0.1 % (0.0-4.0); HEMATOCRIT 23.2 % (36-52); HEMOGLOBIN 7.5 g/dL (12.0-18.0); LYMPHOCYTES # (AUTO) 0.5 K/uL (2.0-11.5); LYMPHOCYTES % (AUTO) 4.5 % (20.5-51.1); MEAN CORPUSCULAR HEMOGLOBIN 27 pg (27-31); MEAN CORPUSCULAR HGB CONC 32 g/dL (33-37); MEAN CORPUSCULAR VOLUME 84.6 fL (80-94); MONOCYTES # (AUTO) 1.2 K/uL (0.8-1.0); MONOCYTES % (AUTO) 9.9 % (1.7-9.3); NEUTROPHILS # (AUTO) 10.4 K/uL (1.8-7.7); NEUTROPHILS % (AUTO) 85.4 % (42.2-75.2); PLATELET COUNT (AUTO) 296 K/uL (140-450); RED BLOOD CELL COUNT(AUTO) 2.74 MIL/uL (4.20-6.10); RED CELL DISTRIBUTION WIDTH 18.2 % (11.6-13.7); WHITE BLOOD COUNT (AUTO) 12.2 K/uL (4.8-10.8)
[2023-07-20 06:48] LABS: ALANINE AMINOTRANSFERASE 26 U/L (12-78); ALBUMIN 1.9 g/dL (3.4-5.0); ALKALINE PHOSPHATASE 146 U/L (50-136); ANION GAP 25.1 (8-16); ASPARTATE AMINOTRANSFERASE 113 U/L (15-37); CALCIUM 8.6 mg/dL (8.5-10.1); CARBON DIOXIDE 11.9 mmol/L (21-32); CHLORIDE 109 mmol/L (98-107); GLUCOSE 180 mg/dL (74-106); SODIUM SERUM 140 mmol/L (136-145); TOTAL BILIRUBIN 0.4 mg/dL (0.0-1.0); TOTAL PROTEIN, SERUM 7.3 g/dL (6.4-8.2)
[2023-07-20 08:03] LABS: CREATININE 5.6 mg/dL (0.6-1.3); UREA NITROGEN, BLOOD 98 mg/dL (7-18)
[2023-07-20] MEDS ORDERED: ESCITALOPRAM 20 MG TAB PO SCH (09:00)
[2023-07-20] MEDS ORDERED: GABAPENTIN 100 MG CAP PO SCH (09:00)
[2023-07-20] MEDS ORDERED: MEMANTINE 10 MG TAB PO SCH (09:00)
[2023-07-20] MEDS ORDERED: LEVOTHYROXINE 0.05 MG TAB PO SCH (09:00)
[2023-07-20] MEDS ORDERED: ENOXAPARIN 40 MG/0.4 ML SYR SUBQ SCH (09:00)
[2023-07-20] MEDS ORDERED: lamoTRIgine 25 MG TAB PO SCH (09:00)
[2023-07-20] MEDS ORDERED: PANTOPRAZOLE 40 MG INJ VIAL IVP SCH (09:00)
[2023-07-20] MEDS ORDERED: MORPHINE SULFATE 2 MG/ML SYR IVP PRN (11:30)
== END 2023-07-20 10:15 | DRG 682 ==
LOC: MED 17:10 → MTU 20:28
PROVIDERS: ADMIT Family Medicine; ATTEND Family Medicine
PROC: 5A09357 Assistance with Respiratory Ventilation, Less than 24 Consecutive Hours, Continuous Positive Airway Pressure (ICD-10-PCS; 2023-07-16)
PROC: 5A0935A Assistance with Respiratory Ventilation, Less than 24 Consecutive Hours, High Flow/Velocity Cannula (ICD-10-PCS; principal; 2023-07-19)
DX: N17.9 Acute kidney failure, unspecified (principal); E43 Unspecified severe protein-calorie malnutrition; J96.01 Acute respiratory failure with hypoxia; E72.20 Disorder of urea cycle metabolism, unspecified; E87.5 Hyperkalemia; G20.A1 Parkinson's disease without dyskinesia, without mention of fluctuations; D64.9 Anemia, unspecified; R74.01 Elevation of levels of liver transaminase levels; Z20.822 Contact with and (suspected) exposure to COVID-19; Z79.899 Other long term (current) drug therapy; Z79.82 Long term (current) use of aspirin; Z68.28 Body mass index [BMI] 28.0-28.9, adult; U09.9 Post COVID-19 condition, unspecified; R41.82 Altered mental status, unspecified
CPT/HCPCS: 36415; 36600; 71045; 80048; 80053; 80076; 82140; 82803; 82948; 83605; 83880; 84443; 84484; 85025; 87040; 87081; 93005; 94640; 94660; 96365; 96375; 99285; J0696; J1644; J1815; J2543; J2920; J3490; J7060; Q0092